=== PATIENT | male | born 1930 | race Caucasian/White ===

== ENCOUNTER 2018-10-11 09:00 | Inpatient (IN) | payer MEDICARE, OTHER ==
[2018-10-11] MEDS: CEFEPIME 2GM/50 ML (PMX) 50 ML IVPB ×2 (09:18→21:28)
[2018-10-11] MEDS: ACETAMINOPHEN 650 MG SUPP PR (09:18)
[2018-10-11 09:26] LABS: ABNORMAL IP MESSAGE 1; HEMATOCRIT 39.7 % (42.0-52.0); HEMOGLOBIN 11.7 g/dl (14.0-18.0); MEAN CORPUSCULAR HEMOGLOBIN 25.9 pg (29.0-33.0); MEAN CORPUSCULAR HGB CONC 29.5 g/dl (32.0-37.0); MEAN CORPUSCULAR VOLUME 87.8 fl (82.0-101.0); MEAN PLATELET VOLUME 10.5 fl (7.4-10.4); PLATELET COUNT 425 10^3/UL (140-415); POSITIVE DIFF @See below; RED BLOOD COUNT 4.52 10^6/ul (4.70-6.10); RED CELL DISTRIBUTION WIDTH 21.1 % (11.5-14.5)
[2018-10-11 09:28] LABS: ADD MAN DIFF? YES
[2018-10-11] MEDS ORDERED: ONDANSETRON 4 MG INJ IV ×2 (09:30→20:00)
[2018-10-11] MEDS ORDERED: ACETAMINOPHEN 325 MG TAB PO (09:30)
[2018-10-11] MEDS: ONDANSETRON 4 MG INJ IV (09:37)
[2018-10-11] MEDS: morphine 4 MG/ML VIAL IV (09:37)
[2018-10-11 09:47] LABS: INR 1.68; PROTIME 19.9 Sec (11.9-14.9); PT RATIO 1.6
[2018-10-11 09:48] LABS: PARTIAL THROMBOPLASTIN TIME 27.5 Sec (23.0-35.0)
[2018-10-11 09:49] LABS: ALANINE AMINOTRANSFERASE 100 IU/L (13-69); ALBUMIN 3.5 g/dl (3.3-4.9); ALBUMIN/GLOBULIN RATIO 0.72; ALKALINE PHOSPHATASE 59 IU/L (42-121); ANION GAP 10 (5-13); ASPARTATE AMINO TRANSFERASE 93 IU/L (15-46); BILIRUBIN,INDIRECT 0.8 mg/dl (0-1.1); BILIRUBIN,TOTAL 0.8 mg/dl (0.2-1.3); BLOOD UREA NITROGEN 48 mg/dl (7-20); CALCIUM 9.9 mg/dl (8.4-10.2); CARBON DIOXIDE 23 mmol/L (21-31); CHLORIDE 122 mmol/L (97-110); CREATININE 1.26 mg/dl (0.61-1.24); GLUCOSE 240 mg/dl (70-220); POTASSIUM 4.4 mmol/L (3.5-5.1); SODIUM 155 mmol/L (135-144); TOTAL PROTEIN 8.3 g/dl (6.1-8.1)
[2018-10-11] MEDS: SODIUM CHLORIDE 0.9% 1L BAG IV* (09:52)
[2018-10-11] MEDS: VANCOMYCIN 1 GM (PMX) 250 ML IVPB (09:56)
[2018-10-11 10:02] LABS: TROPONIN-I 0.421 ng/ml (0.000-0.120)
[2018-10-11 10:07] LABS: GIANT THROMBO% (M) 1 % (0-0); LYMPHOCYTES % (M) 31 % (15-51); PLATELET ESTIMATE NORMAL; RBC MORPHOLOGY COMMENT @See below; WBC MORPHOLOGY COMMENT @See below
[2018-10-11] MEDS: ASPIRIN 300 MG SUPP PR (10:27)
[2018-10-11 11:02] LABS: ANISOCYTOSIS 1+ (0-0); BAND NEUTROPHILS #M 4.2 10^3/ul (0.0-0.6); BAND NEUTROPHILS % (M) 11 % (0-4); BURR CELLS 1+ (0-0); HYPOCHROMASIA 1+ (0-0); MONOCYTE #M 1.9 10^3/ul (0.3-0.9); MONOCYTES % (M) 5 % (0-11); POIKILOCYTOSIS 1+ (0-0); POLYCHROMASIA 3+ (0-0); REACTIVE LYMPHOCYTES #M 0.7 10^3/ul (0.0-0.0); REACTIVE LYMPHOCYTES% (M) 2 % (0-0); SEG NEUT #M 21.5 10^3/ul (1.6-7.5); SEGMENTED NEUTROPHILS (M) % 51 % (39-77); SMUDGE%M 29 % (0-0)
[2018-10-11 11:58] LABS: LACTIC ACID 2.5 mmol/L (0.5-2.0)
[2018-10-11] MEDS ORDERED: METOPROLOL 5 MG INJ (12:00)
[2018-10-11] MEDS ORDERED: VANCOMYCIN IV PER PHARMACY XX (20:00)
[2018-10-11] MEDS: DEXTROSE 5%-0.9% NACL 1,000 ML IV (20:16)
[2018-10-11 20:23] LABS: LACTIC ACID 2.4 mmol/L (0.5-2.0)
[2018-10-11] MEDS: ALBUTEROL/IPRATROPIUM (NEB) 3 ML AMP HHN (20:56)
[2018-10-11 21:16] LABS: TROPONIN-I 0.286 ng/ml (0.000-0.120)
[2018-10-12 00:26] LABS: ADD UMIC YES; UR ASCORBIC ACID 40 mg/dL (NEGATIVE); UR BILIRUBIN (Dip) NEGATIVE (NEGATIVE); UR BLOOD (Dip) NEGATIVE (NEGATIVE); UR CALCIUM CARBONATE CRYSTALS MAN /HPF (NONE SEEN); UR CLARITY CLOUDY (CLEAR); UR COLOR AMBER (YELLOW); UR GLUCOSE (Dip) NEGATIVE (NEGATIVE); UR HYALINE CAST FEW /HPF (NONE SEEN); UR KETONES (Dip) NEGATIVE (NEGATIVE); UR LEUKOCYTE ESTERASE (Dip) NEGATIVE Leu/ul (NEGATIVE); UR MUCUS FEW /HPF (NONE SEEN); UR NITRITE (Dip) NEGATIVE (NEGATIVE); UR RBC 4 /HPF (0-5); UR SPECIFIC GRAVITY (Dip) 1.025 (1.003-1.030); UR SQUAMOUS EPITHELIAL CELL FEW /HPF (FEW); UR TOTAL PROTEIN (Dip) 1+ mg/dl (NEGATIVE); UR UROBILINOGEN (Dip) 2+ mg/dL (NEGATIVE); UR WBC 3 /HPF (0-5)
[2018-10-12] MEDS: morphine 2 MG INJ IV (00:35)
[2018-10-12] MEDS: PANTOPRAZOLE 40 MG INJ IV (05:32)
[2018-10-12 06:16] LABS: ABNORMAL IP MESSAGE 1; HEMOGLOBIN 10.8 g/dl (14.0-18.0); MEAN CORPUSCULAR HGB CONC 28.4 g/dl (32.0-37.0); MEAN CORPUSCULAR VOLUME 91.3 fl (82.0-101.0); MEAN PLATELET VOLUME 11.2 fl (7.4-10.4); PLATELET COUNT 312 10^3/UL (140-415); POSITIVE DIFF @See below; RED BLOOD COUNT 4.16 10^6/ul (4.70-6.10); RED CELL DISTRIBUTION WIDTH 21.3 % (11.5-14.5)
[2018-10-12 06:25] LABS: ADD MAN DIFF? YES
[2018-10-12 06:31] LABS: ANION GAP 5 (5-13); BLOOD UREA NITROGEN 64 mg/dl (7-20); CALCIUM 9.1 mg/dl (8.4-10.2); CARBON DIOXIDE 24 mmol/L (21-31); CHLORIDE 129 mmol/L (97-110); CREATININE 1.48 mg/dl (0.61-1.24); GLUCOSE 198 mg/dl (70-220); POTASSIUM 4.6 mmol/L (3.5-5.1); SODIUM 158 mmol/L (135-144)
[2018-10-12 07:15] LABS: B-TYPE NATRIURETIC PEPTIDE 71700 PG/ML (0-450)
[2018-10-12 07:25] LABS: TROPONIN-I 0.303 ng/ml (0.000-0.120)
[2018-10-12] MEDS: ACETAMINOPHEN 650 MG SUPP PR (08:00)
[2018-10-12 08:17] LABS: BAND NEUTROPHILS #M 12.9 10^3/ul (0.0-0.6); BAND NEUTROPHILS % (M) 36 % (0-4); BURR CELLS 2+ (0-0); LYMPHOCYTES #M 13.3 10^3/ul (0.8-2.9); LYMPHOCYTES % (M) 37 % (15-51); METAMYELOCYTES #M 1.4 10^3/ul (0.0-0.0); METAMYELOCYTES %M 4 % (0-0); MONOCYTE #M 0.3 10^3/ul (0.3-0.9); MONOCYTES % (M) 1 % (0-11); OVALOCYTES 1+ (0-0); PLATELET ESTIMATE NORMAL; POIKILOCYTOSIS 1+ (0-0); POLYCHROMASIA 1+ (0-0); SEG NEUT #M 12.6 10^3/ul (1.6-7.5); SEGMENTED NEUTROPHILS (M) % 22 % (39-77); SMUDGE%M 78 % (0-0)
[2018-10-12] MEDS: CEFEPIME 2GM/50 ML (PMX) 50 ML IVPB ×2 (09:04→20:17)
[2018-10-12] MEDS: ALBUTEROL/IPRATROPIUM (NEB) 3 ML AMP HHN ×3 (09:29→20:55)
[2018-10-12 09:51] LABS: AADO2 Arterial 200.3 mmHg (7.0-24.0); Allen Test ACCEPTAB; Arterial Base Excess -4.4 mmol/L (-3.0-3); Arterial Blood Gas Oxygen Sat 97.6 mmHG (95.0-100.0); Arterial COHb 0.3 % (0.0-3.0); Arterial Fraction of Oxyhgb 96.8 % (93.0-99.0); Arterial HCO3 21.5 mmol/L (22.0-26.0); Arterial MetHb 0.5 % (0.0-1.5); Arterial pCO2 42.4 mmhg (35-45); MODE MASK - SIMPLE; Site Right Radial
[2018-10-12] MEDS: HEPARIN 1000 UNITS/ML 10 ML INJ IV (09:54)
[2018-10-12] MEDS: METOPROLOL 5 MG INJ IV (09:54)
[2018-10-12] MEDS: VANCOMYCIN 1 GM 250 ML IVPB (09:55)
[2018-10-12] MEDS ORDERED: HEPARIN 1000 UNITS/ML 10 ML INJ IV (10:00)
[2018-10-12] MEDS ORDERED: HEPARIN 25000 UNITS/250 ML 250 ML IV (10:00)
[2018-10-12] MEDS: DIGOXIN 500 MCG INJ IV (13:47)
[2018-10-12 14:05] LABS: THYROID STIMULATING HORMONE 0.026 MIU/L (0.465-4.680)
[2018-10-12] MEDS: DEXTROSE 5%-0.9% NACL 1,000 ML IV (16:16)
[2018-10-12 19:51] LABS: CREATINE KINASE 34 IU/L (23-200)
[2018-10-12 20:04] LABS: CK INDEX 4.2; CK-MB 1.43 ng/ml (0.0-2.4)
[2018-10-12 20:06] LABS: TROPONIN-I 0.291 ng/ml (0.000-0.120)
[2018-10-13 01:07] LABS: CREATINE KINASE 32 IU/L (23-200)
[2018-10-13 01:20] LABS: CK INDEX 5.3; CK-MB 1.68 ng/ml (0.0-2.4)
[2018-10-13 01:24] LABS: TROPONIN-I 0.228 ng/ml (0.000-0.120)
[2018-10-13] MEDS: PANTOPRAZOLE 40 MG INJ IV (05:07)
[2018-10-13 05:31] LABS: WHITE BLOOD COUNT 34.4 10^3/ul (4.8-10.8)
[2018-10-13 05:31] LABS: ABNORMAL IP MESSAGE 1; HEMATOCRIT 32.9 % (42.0-52.0); HEMOGLOBIN 9.3 g/dl (14.0-18.0); MEAN CORPUSCULAR HEMOGLOBIN 26.3 pg (29.0-33.0); MEAN CORPUSCULAR HGB CONC 28.3 g/dl (32.0-37.0); MEAN CORPUSCULAR VOLUME 92.9 fl (82.0-101.0); MEAN PLATELET VOLUME 11.4 fl (7.4-10.4); PLATELET COUNT 213 10^3/UL (140-415); POSITIVE DIFF @See below; RED BLOOD COUNT 3.54 10^6/ul (4.70-6.10)
[2018-10-13 05:49] LABS: ANION GAP 3 (5-13); BLOOD UREA NITROGEN 71 mg/dl (7-20); CALCIUM 9.3 mg/dl (8.4-10.2); CARBON DIOXIDE 24 mmol/L (21-31); CHLORIDE 136 mmol/L (97-110); CREATININE 1.29 mg/dl (0.61-1.24); GLUCOSE 157 mg/dl (70-220); POTASSIUM 4.1 mmol/L (3.5-5.1)
[2018-10-13 05:52] LABS: SODIUM 163 mmol/L (135-144)
[2018-10-13 05:54] LABS: ADD MAN DIFF? YES
[2018-10-13 06:00] LABS: CREATINE KINASE 30 IU/L (23-200)
[2018-10-13 06:01] LABS: CK INDEX 8.4
[2018-10-13 06:02] LABS: CK-MB 2.51 ng/ml (0.0-2.4); TROPONIN-I 0.195 ng/ml (0.000-0.120)
[2018-10-13 06:17] LABS: B-TYPE NATRIURETIC PEPTIDE 33900 PG/ML (0-450)
[2018-10-13] MEDS: DEXTROSE 5% 1,000 ML IV (06:48)
[2018-10-13 07:12] LABS: ANISOCYTOSIS 1+ (0-0); BAND NEUTROPHILS #M 6.5 10^3/ul (0.0-0.6); BAND NEUTROPHILS % (M) 19 % (0-4); BURR CELLS 2+ (0-0); GIANT THROMBO% (M) 1 % (0-0); LYMPHOCYTES #M 9.6 10^3/ul (0.8-2.9); LYMPHOCYTES % (M) 28 % (15-51); MONOCYTE #M 1.3 10^3/ul (0.3-0.9); MONOCYTES % (M) 4 % (0-11); PLATELET ESTIMATE NORMAL; POIKILOCYTOSIS 3+ (0-0); POLYCHROMASIA 3+ (0-0); SEG NEUT #M 19.1 10^3/ul (1.6-7.5); SEGMENTED NEUTROPHILS (M) % 49 % (39-77); SMUDGE%M 40 % (0-0); TARGET CELLS 1+ (0-0)
[2018-10-13] MEDS: ALBUTEROL/IPRATROPIUM (NEB) 3 ML AMP HHN ×3 (08:40→19:38)
[2018-10-13] MEDS: CEFEPIME 2GM/50 ML (PMX) 50 ML IVPB (08:50)
[2018-10-13] MEDS: METOPROLOL 5 MG INJ IV (08:50)
[2018-10-13] MEDS ORDERED: DIGOXIN 500 MCG INJ IV (09:50)
[2018-10-13] MEDS: DIGOXIN 500 MCG INJ IV ×2 (09:58→16:00)
[2018-10-13 09:59] LABS: VANCOMYCIN,TROUGH 11.8 ug/ml (10.0-20.0)
[2018-10-13] MEDS: VANCOMYCIN 1 GM 250 ML IVPB (10:55)
[2018-10-13] MEDS: DILTIAZEM 25 MG INJ IV (10:57)
[2018-10-13] MEDS ORDERED: AMIODARONE 150MG/D5W BOLUS 100 ML IV (12:30)
[2018-10-13] MEDS ORDERED: AMIODARONE 900 MG in DEXTROSE 5% 482 ML IV (12:30)
[2018-10-13] MEDS ORDERED: DILTIAZEM 25 MG INJ IV (13:30)
[2018-10-13] MEDS: FUROSEMIDE 20 MG INJ IV (13:46)
[2018-10-13 21:54] LABS: AADO2 Arterial 182.7 mmHg (7.0-24.0); Allen Test ACCEPTAB; Arterial Base Excess -3.2 mmol/L (-3.0-3); Arterial Blood Gas Oxygen Sat 97.1 mmHG (95.0-100.0); Arterial COHb 0.3 % (0.0-3.0); Arterial Fraction of Oxyhgb 96.4 % (93.0-99.0); Arterial HCO3 21.6 mmol/L (22.0-26.0); Arterial MetHb 0.4 % (0.0-1.5); Arterial pCO2 37.7 mmhg (35-45); MODE MASK - SIMPLE; Site Right Radial
[2018-10-14] MEDS: MUPIROCIN 2% 22 GM OINT TOP ×2 (00:56→09:29)
[2018-10-14] MEDS: CEFEPIME 2GM/50 ML (PMX) 50 ML IVPB ×2 (00:56→09:29)
[2018-10-14] MEDS: DEXTROSE 5% 1,000 ML IV (02:31)
[2018-10-14] MEDS: ACETAMINOPHEN 650 MG SUPP PR (05:00)
[2018-10-14] MEDS: PANTOPRAZOLE 40 MG INJ IV (06:32)
[2018-10-14] MEDS: ALBUTEROL/IPRATROPIUM (NEB) 3 ML AMP HHN ×2 (07:32→14:01)
[2018-10-14 08:16] LABS: WHITE BLOOD COUNT 42.8 10^3/ul (4.8-10.8)
[2018-10-14 08:16] LABS: ABNORMAL IP MESSAGE 1; HEMATOCRIT 32.5 % (42.0-52.0); HEMOGLOBIN 9.3 g/dl (14.0-18.0); MEAN CORPUSCULAR HEMOGLOBIN 26.1 pg (29.0-33.0); MEAN CORPUSCULAR HGB CONC 28.6 g/dl (32.0-37.0); MEAN CORPUSCULAR VOLUME 91.3 fl (82.0-101.0); MEAN PLATELET VOLUME 11.6 fl (7.4-10.4); PLATELET COUNT 205 10^3/UL (140-415); POSITIVE DIFF @See below; RED BLOOD COUNT 3.56 10^6/ul (4.70-6.10); RED CELL DISTRIBUTION WIDTH 21.1 % (11.5-14.5)
[2018-10-14 08:21] LABS: ADD MAN DIFF? YES
[2018-10-14 08:51] LABS: ANION GAP 6 (5-13)
[2018-10-14 08:56] LABS: BLOOD UREA NITROGEN 70 mg/dl (7-20); CALCIUM 9.5 mg/dl (8.4-10.2); CARBON DIOXIDE 24 mmol/L (21-31); GLUCOSE 190 mg/dl (70-220); POTASSIUM 3.8 mmol/L (3.5-5.1)
[2018-10-14 08:58] LABS: CHLORIDE 134 mmol/L (97-110)
[2018-10-14 08:58] LABS: B-TYPE NATRIURETIC PEPTIDE 30600 PG/ML (0-450)
[2018-10-14 09:00] LABS: SODIUM 164 mmol/L (135-144)
[2018-10-14 09:13] LABS: BAND NEUTROPHILS #M 3.8 10^3/ul (0.0-0.6); BAND NEUTROPHILS % (M) 9 % (0-4); HYPOCHROMASIA 1+ (0-0); LYMPHOCYTES #M 8.1 10^3/ul (0.8-2.9); LYMPHOCYTES % (M) 19 % (15-51); MONOCYTE #M 0.4 10^3/ul (0.3-0.9); MONOCYTES % (M) 1 % (0-11); PLATELET ESTIMATE NORMAL; POIKILOCYTOSIS 1+ (0-0); POLYCHROMASIA 1+ (0-0); SEGMENTED NEUTROPHILS (M) % 71 % (39-77); SMUDGE%M 28 % (0-0)
[2018-10-14] MEDS: VANCOMYCIN 1 GM 250 ML IVPB (10:35)
[2018-10-14 11:09] LABS: OCCULT BLOOD STOOL POSITIVE (NEGATIVE)
[2018-10-14] MEDS ORDERED: FUROSEMIDE 20 MG INJ IV (14:30)
[2018-10-14] MEDS: morphine (DRIP) 100 MG/100 ML 100 ML IV (15:49)
[2018-10-14 16:46] LABS: INR 1.58; PT RATIO 1.5
[2018-10-15 06:22] LABS: WHITE BLOOD COUNT 39.3 10^3/ul (4.8-10.8)
[2018-10-15 06:22] LABS: ABNORMAL IP MESSAGE 1; HEMATOCRIT 34.6 % (42.0-52.0); HEMOGLOBIN 9.6 g/dl (14.0-18.0); MEAN CORPUSCULAR HEMOGLOBIN 25.7 pg (29.0-33.0); MEAN CORPUSCULAR HGB CONC 27.7 g/dl (32.0-37.0); MEAN CORPUSCULAR VOLUME 92.5 fl (82.0-101.0); MEAN PLATELET VOLUME 11.5 fl (7.4-10.4); NUCLEATED RED BLOOD CELLS% 0.1 /100WBC (0.0-0.0); PLATELET COUNT 183 10^3/UL (140-415); POSITIVE DIFF @See below; RED BLOOD COUNT 3.74 10^6/ul (4.70-6.10); RED CELL DISTRIBUTION WIDTH 21.2 % (11.5-14.5)
[2018-10-15 06:36] LABS: ADD MAN DIFF? YES
[2018-10-15 06:42] LABS: ANION GAP 6 (5-13); BLOOD UREA NITROGEN 81 mg/dl (7-20); CALCIUM 9.5 mg/dl (8.4-10.2); CARBON DIOXIDE 26 mmol/L (21-31); CHLORIDE 139 mmol/L (97-110); CREATININE 2.12 mg/dl (0.61-1.24); GLUCOSE 139 mg/dl (70-220); POTASSIUM 4.4 mmol/L (3.5-5.1)
[2018-10-15 06:45] LABS: SODIUM 171 mmol/L (135-144)
[2018-10-15 07:26] LABS: B-TYPE NATRIURETIC PEPTIDE 84900 PG/ML (0-450)
[2018-10-15] MEDS ORDERED: FUROSEMIDE 20 MG INJ IV (09:00)
[2018-10-15 09:12] LABS: ANISOCYTOSIS 1+ (0-0); BAND NEUTROPHILS #M 4.3 10^3/ul (0.0-0.6); BAND NEUTROPHILS % (M) 11 % (0-4); BURR CELLS 2+ (0-0); GIANT THROMBO% (M) 1 % (0-0); LYMPHOCYTES #M 11.3 10^3/ul (0.8-2.9); LYMPHOCYTES % (M) 29 % (15-51); MONOCYTE #M 1.5 10^3/ul (0.3-0.9); MONOCYTES % (M) 4 % (0-11); OVALOCYTES 1+ (0-0); PLATELET ESTIMATE NORMAL; POIKILOCYTOSIS 3+ (0-0); POLYCHROMASIA 3+ (0-0); SEG NEUT #M 23.7 10^3/ul (1.6-7.5); SEGMENTED NEUTROPHILS (M) % 56 % (39-77); SMUDGE%M 29 % (0-0); TARGET CELLS 1+ (0-0)
[2018-10-15] MEDS ORDERED: ATROPINE 1% 5 ML OPH SL (10:30)
[2018-10-15] MEDS ORDERED: BISACODYL 10 MG SUPP PR (10:30)
[2018-10-15] MEDS ORDERED: ONDANSETRON 4 MG INJ IV (10:30)
[2018-10-15] MEDS ORDERED: ACETAMINOPHEN 650 MG SUPP PR (10:30)
[2018-10-15] MEDS ORDERED: LORAZEPAM 2 MG INJ IV (10:30)
[2018-10-15] MEDS ORDERED: morphine (DRIP) 100 MG/100 ML 100 ML IV (11:00)
[2018-10-15] MEDS: SCOPOLAMINE 1.5 MG PATCH TRANSDERM (11:59)
[2018-10-15] MEDS: ARTIFICIAL TEARS 15 ML OPH BOTH EYES (12:00)
[2018-10-15] MEDS: DIMETHICONE STICK TOP (12:01)
[2018-10-15] MEDS: morphine (DRIP) 100 MG/100 ML 100 ML IV (12:12)
[2018-10-15] MEDS: ALBUTEROL/IPRATROPIUM (NEB) 3 ML AMP HHN (17:34)
== END 2018-10-15 23:00 | disposition expired | DRG 871 ==
LOC: E/R 09:00 → ICU 10-12 11:50 → TEL 10-13 16:33 → 2NE 10-14 23:44
DX: A41.9 Sepsis, unspecified organism (principal); J18.9 Pneumonia, unspecified organism; J96.01 Acute respiratory failure with hypoxia; R65.21 Severe sepsis with septic shock; G93.40 Encephalopathy, unspecified; D68.9 Coagulation defect, unspecified; E87.0 Hyperosmolality and hypernatremia; R64 Cachexia; N17.9 Acute kidney failure, unspecified; I50.20 Unspecified systolic (congestive) heart failure; I95.9 Hypotension, unspecified; R13.10 Dysphagia, unspecified; J44.9 Chronic obstructive pulmonary disease, unspecified; I11.0 Hypertensive heart disease with heart failure; E86.0 Dehydration; F02.80 Dementia in other diseases classified elsewhere, unspecified severity, without behavioral disturbance, psychotic disturbance, mood disturbance, and anxiety; G30.9 Alzheimer's disease, unspecified; D64.9 Anemia, unspecified; K21.9 Gastro-esophageal reflux disease without esophagitis; E78.5 Hyperlipidemia, unspecified; M19.90 Unspecified osteoarthritis, unspecified site; R00.0 Tachycardia, unspecified; N18.9 Chronic kidney disease, unspecified; Y95 Nosocomial condition; Z68.22 Body mass index [BMI] 22.0-22.9, adult; Z66 Do not resuscitate
CPT/HCPCS: 36415; 36600; 71045; 80048; 80053; 80202; 81001; 82270; 82550; 82553; 82803; 82962; 83605; 83880; 84443; 84484; 85025; 85610; 85730; 87040-91; 87081; 87086; 92610; 93005; 93306; 94640; 94664; 99285-25